=== PATIENT | male | born 1950 | race Caucasian/White ===

== ENCOUNTER 2021-03-20 16:45 | Emergency (ER) | payer MEDICARE ==
[2021-03-20] MEDS ORDERED: XYLOCAINE 1% HCL 20 ML MDV ONE ×2 (17:17→19:16)
--- NOTE | 2021-03-20 17:50 | ERPHSYRPT ---
- History of Present Illness Source: patient Exam Limitations: no limitations Patient Subjective Stated Complaint: Pt states "I was using a chainsaw and slipped and I didn't get my leg with the chainsaw, I hit the stump and cut my leg." Triage Nursing Assessment: Pt presented alert and oriented X 3, skin pwd. Pt ambulates with a slow gait, ablet to speak in clear full sentences pt in no apparent respiratory distress. PT has evulsion noted to right barajas Method of Injury: direct blow, incised Occurred: just prior to arrival Quality: aching Severity of Pain-Max: moderate Severity of Pain-Current: moderate Lower Extremities Pain: leg: right (3 cm anterior laceration) Modifying Factors: Improves With: nothing Associated Symptoms: none Hx Tetanus, Diphtheria Vaccination/Date Given: No Hx Influenza Vaccination/Date Given: Yes Hx Pneumococcal Vaccination/Date Given: No Immunizations Up to Date: Yes <BOSTON ANDRE - Last Filed: 03/20/21 17:46> <DANYEL MURILLO - Last Filed: 03/20/21 20:31> - History of Present Illness Time Seen by Provider: 03/20/21 16:50 Physician History: Fidel is a 70-year-old male who was cutting down some trees when his chainsaw buckled he was able to avoid being cut by the chainsaw but did lacerate his right leg on the stump. He has about a 3 cm laceration of the anterior right leg adjacent to the tibia. (BOSTON ANDRE) Allergies/Adverse Reactions: No Known Drug Allergies Allergy (Verified 03/20/21 16:54) Home Medications: Atorvastatin Calcium [Lipitor] 40 mg PO DAILY 03/20/21 [History] Travel Risk - International Travel Have you traveled outside of the country in past 3 weeks: No - Coronavirus Screening Are you exhibiting any of the following symptoms?: No Close contact with a COVID-19 positive Pt in past 14-21 Days: No - Vaccine Status Have you recieved a Covid-19 vaccination: Yes [employer]: [employer] - Vaccination Dates Date of 2cond Vaccination (if applicable): 10/2020 <BOSTON ANDRE - Last Filed: 03/20/21 17:46> - Review of Systems Constitutional: No Fever, No Chills Eyes: No Symptoms Ears, Nose, & Throat: No Symptoms Respiratory: No Cough, No Dyspnea Cardiac: No Chest Pain, No Edema, No Syncope Abdominal/Gastrointestinal: No Abdominal Pain, No Nausea, No Vomiting, No Diarrhea Genitourinary Symptoms: No Dysuria Musculoskeletal: No Back Pain, No Neck Pain Skin: No Rash Neurological: No Dizziness, No Focal Weakness, No Sensory Changes Psychological: No Symptoms Endocrine: No Symptoms All Other Systems: Reviewed and Negative <BOSTON ANDRE Filed: 03/20/21 17:46> - Past Medical History Pertinent Past Medical History: Yes Cardiac History: High Cholesterol - Past Surgical History Past Surgical History: No - Social History Smoking Status: Former smoker Exposure to second hand smoke: No Drug Use: none Patient Lives Alone: No <BOSTON ANDRE Filed: 03/20/21 17:46> - Physical Exam General Appearance: mild distress Eyes, Ears, Nose, Throat Exam: moist mucous membranes Neck Exam: normal inspection, supple, full range of motion Cardiovascular/Respiratory Exam: no JVD, no respiratory distress Back Exam: normal inspection, normal range of motion Hips Exam: bilateral: non-tender, normal inspection, normal range of motion Legs Exam: right leg: other (3 cm laceration mid anterior right leg), left leg: non-tender, normal inspection, normal range of motion, no evidence of injury Knees Exam: bilateral knee: non-tender, normal inspection, normal range of motion, no evidence of injury Ankle Exam: bilateral ankle: non-tender, normal inspection, normal range of motion, no evidence of injury Foot Exam: bilateral foot: non-tender, normal inspection, normal range of motion, no evidence of injury DTR - Lower Extremities Exam: knee (R): 2+, knee (L): 2+ Neuro/Tendon Exam: normal sensation, normal motor functions, normal tendon functions Mental Status Exam: alert, oriented x 3, cooperative Skin Exam: laceration SpO2 Interpretation: normal SpO2: 96 O2 Delivery: Room Air <BOSTON ANDRE Filed: 03/20/21 17:46> - Nursing Vital Signs Nursing Vital Signs: Initial Vital Signs Temperature 98.2 F 03/20/21 16:47 Pulse Rate 90 03/20/21 16:47 Respiratory Rate 20 03/20/21 16:47 Blood Pressure 144/88 03/20/21 16:47 O2 Sat by Pulse Oximetry 96 03/20/21 16:47 Pain Scale Pain Intensity 5 Procedures - Laceration/Wound Repair Right Other Time of Procedure: 20:15 Wound Location: Right (Right anterior lower leg. ) Irrigated: Yes (See irrigation notes for details ) Anesthesia: 1% Lidocaine Volume Anesthetic (ccs): 4 Wound Debrided: minimal Wound Repaired With: sutures Suture Size/Type: 5-0, nylon Number of Sutures: 5 Layer Closure?: No Sterile Dressing Applied?: Yes Splint Applied?: No <DANYEL MURILLO - Last Filed: 03/20/21 20:31> - Laceration/Wound Repair Right Other Progress: Patient neurovascularly intact prior and after suture repair. 03/20/21 20:16 (DANYEL MURILLO) - Course Nursing assessment & vital signs reviewed: Yes - Radiology Exams Lower Leg X-ray Interpretation: Interpreted by me (X-ray negative for fracture dislocations. There is obvious soft tissue disruption just superficial to the area of involvement.) <DANYEL MURILLO - Last Filed: 03/20/21 20:31> Ordered Tests: Active Orders 24 hr Category Date Time Status LOWER LEG Stat Exams 03/20/21 18:31 Taken Medication Summary Discontinued Medications Generic Name Dose Route Start Last Admin Trade Name Freq PRN Reason Stop Dose Admin Cefazolin Sodium 1 g 03/20/21 20:05 Kefzol 1 Gm IM 03/20/21 20:06 STAT ONE Diphtheria/Tetanus/Acell Pertussis 0.5 ml 03/20/21 20:04 Adacel Vial IM 03/20/21 20:05 .ONCE ONE Hydromorphone HCl 1 mg 03/20/21 18:11 03/20/21 18:16 Hydromorphone 1 Mg/Ml Injection IV 03/20/21 18:12 1 mg STAT ONE Administration Hydromorphone HCl Confirm 03/20/21 18:15 Hydromorphone 1 Mg/Ml Injection Administered 03/20/21 18:16 Dose 1 mg .ROUTE .STK-MED ONE Lidocaine HCl Confirm 03/20/21 17:17 Xylocaine 1% Hcl 20 Ml Mdv Administered 03/20/21 17:18 Dose 20 ml .ROUTE .STK-MED ONE Lidocaine HCl Confirm 03/20/21 19:16 Xylocaine 1% Hcl 20 Ml Mdv Administered 03/20/21 19:17 Dose 1 ml .ROUTE .STK-MED ONE Lidocaine HCl 5 ml 03/20/21 19:23 Xylocaine-Mpf 2% 5 Ml Vial IJ 03/20/21 19:24 STAT ONE - Progress Progress: improved Counseled pt/family regarding: diagnosis, need for follow-up, rad results <DANYEL MURILLO - Last Filed: 03/20/21 20:31> - Progress Progress Note: There was a small avulsion injury to the anterior tibialis muscle. Small portion of muscle was protruding through the wound. The wound was copiously irrigated. Upon contraction of the tibialis anterior muscle the portion of injured muscle was retracted into the wound and settled into its anatomic position. The flap was closed. 5 simple interrupted sutures using 5-0 nylon was used to close the wound. The wound flap and entire right lower extremity was neurovascular intact distally post procedure. However there always exists the possibility of flap necrosis. Due to the nature of the injury patient understands that this is a high risk wound. He understands that infection is possible. Patient received 1 g intramuscular Ancef in our ED. Tetanus was updated. A prescription for Augmentin was forwarded to patient's pharmacy. Patient agrees to 24-hour follow-up for reassessment. Portions of this note were created with voice recognition technology. There may be grammatical, spelling, punctuation or sound alike errors 03/20/21 20:[address] Murillo at approximately 7 PM at change of shift. Patient initially evaluated by Dr. Andre. 03/20/21 20:26 (DANYEL MURILLO) <BOSTON ANDRE - Last Filed: 03/20/21 17:46> - Departure Departure Disposition: Home Critical Care Time: No <DANYEL MURILLO - Last Filed: 03/20/21 20:31> - Departure Clinical Impression: Leg laceration Condition: Stable Referrals: DOCTOR,NO FAMILY [Primary Care Provider] - SUSAN GAMBOA [ACTIVE STAFF] - Instructions: Wound Care (DC), Laceration Repair With Stitches (DC) Additional Instructions: Discharge/Care Plan ANGELY REINA was seen on 03/20/21 in the Emergency Room. The patient was counseled regarding Diagnosis,Lab results, Imaging studies, need for follow up and when to return to the Emergency Room. Prescriptions given: Discharge Note I have spoken with the patient and/or caregivers. I have explained the patient's condition, diagnosis and treatment plan based on the information available to me at this time. I have answered the patient's and/or caregiver's questions and addressed any concerns. The patient and/or caregivers have as good understanding of the patient's diagnosis, condition and treatment plan as can be expected at this point. The vital signs have been stable. The patient's condition is stable and appropriate for discharge from the emergency department. The patient will pursue further outpatient evaluation with the primary care phys ician or other designated or consulting physician as outlined in the discharge instructions. The patient and/or caregivers are agreeable to this plan of care and follow-up instructions have been explained in detail. The patient and/or caregivers have received these instruction. The patient/and or caregivers are aware that any significant change in condition or worsening of symptoms should prompt an immediate return to this or the closest emergency department or call 911. Prescriptions: Amox Tr/Potass Clav. 875 mg [Augmentin 875-125 Tablet] 875 mg PO BID 7 Day s #14 tablet
[2021-03-20] MEDS ORDERED: Hydromorphone 1 mg/ml Injection IV ONE (18:11)
[2021-03-20] MEDS ORDERED: Hydromorphone 1 mg/ml Injection ONE (18:15)
[2021-03-20] MEDS ORDERED: Xylocaine-Mpf 2% 5 Ml Vial IJ ONE (19:23)
[2021-03-20] MEDS ORDERED: Adacel Vial IM ONE ×2 (20:04→20:40)
[2021-03-20] MEDS ORDERED: KEFZOL 1 GM IM ONE (20:05)
[2021-03-20] MEDS ORDERED: KEFZOL 1 GM ONE (20:40)
[2021-03-20] MEDS ORDERED: XYLOCAINE 1% HCL 20 ML MDV IJ ONE (21:18)
[2021-03-20 21:24] VITALS: BP 140/98; PULSE 76; O2SAT 98
--- NOTE | 2021-03-21 09:15 | XRAY ---
Indication: Laceration. Comparison: None 2 view right lower leg demonstrates mid anterior soft tissue swelling/laceration with overlying bandage, bipartite patella, posterior knee heterotopic ossifications, and small plantar heel spur. No acute fracture, dislocation, suspicious bony lesions, or radiopaque foreign body.
== END 2021-03-20 21:24 | disposition home or self-care (01) ==
LOC: ED 16:45
DX: S81.811A Laceration without foreign body, right lower leg, initial encounter (principal); W45.8XXA Other foreign body or object entering through skin, initial encounter; W22.8XXA Striking against or struck by other objects, initial encounter; Y93.89 Activity, other specified; Y92.89 Other specified places as the place of occurrence of the external cause
CPT/HCPCS: 12002; 73590; 90471; 90715; 96372; 99284; J0690; J1170